=== PATIENT | female | born 1955 | race African-American/Black ===

== ENCOUNTER 2017-07-28 06:01 | Emergency (ER) | payer MEDICAID ==
[~2017-07-28] VITALS: Ht 165.1 cm; Wt 70.0 kg
[2017-07-28 08:29] LABS: BASOPHILS % 0.3 % (0.0-2.0); EOSINOPHILS % 1.5 % (0.0-5.0); HEMATOCRIT. 43.1 % (36.0-48.0); HEMOGLOBIN. 13.9 g/dL (12.0-16.0); LYMPHOCYTES % 28.4 % (20.0-50.0); MEAN CORPUSCULAR HEMOGLOBIN 28.5 pg (28.0-32.0); MEAN CORPUSCULAR VOLUME 88.6 fL (81.0-99.0); MEAN PLATELET VOLUME 8.1 fl (7.4-10.4); MONOCYTES % 5.8 % (2.0-8.0); PLATELET 184 x1000/uL (130-400); RED BLOOD CELL COUNT 4.86 mill/uL (4.2-5.4); RED CELL DISTRIBUTION WIDTH 14.8 % (11.6-14.6)
[2017-07-28 08:31] LABS: CHLORIDE 109 mEq/L (98-107)
[2017-07-28 08:33] LABS: PROTHROMBIN TIME 10.5 sec (9.4-11.6)
[2017-07-28 09:43] VITALS: BP 133/78
== END 2017-07-28 09:49 | disposition home or self-care (01) ==
LOC: ER 06:01
DX: S80.11XA Contusion of right lower leg, initial encounter (principal); M79.604 Pain in right leg; I10 Essential (primary) hypertension; F17.200 Nicotine dependence, unspecified, uncomplicated; Z85.3 Personal history of malignant neoplasm of breast; Z79.810 Long term (current) use of selective estrogen receptor modulators (SERMs); X58.XXXA Exposure to other specified factors, initial encounter; Y93.9 Activity, unspecified; Y92.9 Unspecified place or not applicable
CPT/HCPCS: 36415; 80053; 85025; 85610; 93971; 99285